=== PATIENT | male | born 1980 | race Caucasian/White ===

== ENCOUNTER 2016-07-24 11:21 | Emergency (ER) ==
[2016-07-24 11:21] VITALS: BMI 30.1
[2016-07-24 11:30] VITALS: BP 126/83; TEMP 97.7
[2016-07-24] MEDS ORDERED: MOTRIN SUSP PO STA (11:30)
--- NOTE | 2016-07-24 11:31 | ED.PDOC ---
General ED Provider: Dr. REED CEDILLO-ER Chief Complaint: Ankle Pain/Injury Stated Complaint: i rolled my ankle this morning--hussein injured it before Time Seen by Physician: 11:30 Mode of Arrival: Walk-In Information Source: Patient Exam Limitations: No limitations Nursing and Triage Documentation Reviewed and Agree: Yes Musculoskeletal Complaint Exam - Ankle/Foot Complaint/Exam Location of Injury: Reports: Left, Ankle Mechanism of Injury: Reports: No known trauma Onset/Duration: 1hr Symptoms Are: Reports: Still present Onset of Pain: Reports: Immediate Initial Severity: Mild Current Severity: Mild Location: Reports: Discrete (left ankle) Character: Reports: Dull, Aching, Stiffness Alleviating: Reports: None Aggravating: Reports: Movement, Weight bearing Able to Bear Weight: No Associated Signs and Symptoms: Reports: Swelling, Bruising. Denies: Redness, Fever, Weakness, Numbness, Tingling Gout Risk Factors: Reports: Male Lower Extremity Findings: Present: Swelling, Tenderness, Limited range of motion Achilles Tendon Abnormality: No Tenderness: Present: Lateral malleolus Limited Range of Motion: Present: Inversion, Eversion, Dorsiflexion Differential Diagnosis: Closed Fracture, Sprain, Strain Review of Systems - Review Of Systems Constitutional: Reports: No symptoms Eyes: Reports: No symptoms Ears, Nose, Mouth, Throat: Reports: No symptoms Respiratory: Reports: No symptoms Cardiac: Reports: No symptoms GI: Reports: No symptoms : Reports: No symptoms Musculoskeletal: Reports: Joint pain, Joint swelling, Muscle pain Skin: Reports: No symptoms Neurological: Reports: No symptoms Endocrine: Reports: No symptoms Hematologic/Lymphatic: Reports: No symptoms All Other Systems: Reviewed and Negative Past Medical History - Past Medical History Previously Healthy: Yes Endocrine: Reports: None Cardiovascular: Reports: None Respiratory: Reports: None Hematological: Reports: None Gastrointestinal: Reports: None Genitourinary: Reports: None Neuro/Psych: Reports: None Musculoskeletal: Reports: None Cancer: Reports: None - Surgical History General Surgical History: Reports: Unknown - Family History Family History: Reports: Unknown - Social History Smoking Status: Former smoker Hx Substance Use: No Alcohol Screening: Occasionally Lives: With family Physical Exam - Physical Exam Appearance: Well-appearing, No pain distress, Well-nourished Pain Distress: Mild Eyes: CHRIS, EOMI, Conjunctiva clear ENT: Ears normal, Nose normal, Oropharynx normal Neck: Supple Respiratory: Airway patent, Breath sounds clear, Breath sounds equal, Respirations nonlabored Cardiovascular: RRR, Pulses normal, No rub, No murmur GI/: Soft, Nontender, No masses, Bowel sounds normal, No Organomegaly Musculoskeletal: Limited ROM Skin: Warm, Dry, Normal color Neurological: Sensation intact, Motor intact, Reflexes intact, Cranial nerves intact, Alert, Oriented Psychiatric: Affect appropriate Interpretation - Radiology Interpretation Radiology Interpretation By: Radiologist Radiology Results: Negative Critical Care Note - Critical Care Note Total Time (mins): 0 Course - Course Orders, Labs, Meds: Orders Category Date Time Status Ice Pack [ED APPLY ICE AFFECTED AREA] .ONCE EMERGENCY 07/24/16 11:31 Active Ibuprofen Susp [Motrin Susp] MEDS 07/24/16 11:30 Discontinued 800 mg PO ONCE STA ANKLE, LEFT MIN 3 VIEWS Stat RADS 07/24/16 11:29 Completed Medications Discontinued Medications Generic Name Dose Route Start Last Admin Trade Name Freq PRN Reason Stop Dose Admin Ibuprofen 800 mg 07/24/16 11:30 Motrin Susp PO 07/24/16 11:31 ONCE STA Vital Signs: Temp Pulse Resp BP Pulse Ox 07/24/16 11:24 97.7 F 84 20 126/83 96 Departure - Departure Time of Disposition: 12:03 Disposition: HOME SELF-CARE Discharge Problem: Ankle pain Instructions: Ankle Stirrup Splint (ED), Ankle Sprain (ED) Condition: Good Pt referred to PMD for follow-up: Yes Additional Instructions: stay in splint at least 1-2 weeks--motrin for pain--f/u with pcp Allergies/Adverse Reactions: Allergies No Known Allergies Allergy (Verified 07/24/16 11:26) Home Medications: Ambulatory Orders 1 [No Reported Medications] 01/11/16 Disposition Discussed With: Patient
--- NOTE | 2016-07-24 11:54 | DI ---
EXAM: Three views of the left ankle HISTORY: Ankle injury. COMPARISON: Right ankle x-ray 01/11/2016 FINDINGS: There is no lytic or blastic lesion of the left ankle. There is no displaced fracture or dislocation. The joint spaces are maintained. The soft tissues are normal. The osseous structures are unremarkable. IMPRESSION: No acute abnormality or displaced fracture of the left ankle.
== END 2016-07-24 12:35 | disposition home or self-care (01) ==
LOC: ED 11:21
DX: M25.572 Pain in left ankle and joints of left foot (principal)
CPT/HCPCS: 99283

== ENCOUNTER 2017-10-17 15:15 | Emergency (ER) | payer MEDICAID, OTHER ==
[2017-10-17 15:21] VITALS: BP 160/78; TEMP 98.9; BMI 32.4
--- NOTE | 2017-10-17 15:57 | DI ---
EXAM: Four views of the right knee HISTORY: Right knee injury. COMPARISON: Right knee x-ray 01/11/2016 FINDINGS: The medial and lateral compartments are normal. There is no displaced fracture or dislocat ion. Soft tissues are unremarkable. There is no lytic or blastic lesion. Patellofemoral compartmen t is normal. IMPRESSION: No acute abnormality of the right knee.
--- NOTE | 2017-10-17 15:58 | ED.PDOC ---
General ED Provider: Dr. LILLIAN KELLOGG Chief Complaint: Knee Pain/Injury Stated Complaint: knee pain right sided Time Seen by Physician: 15:17 Mode of Arrival: Walk-In Information Source: Patient Exam Limitations: No limitations Nursing and Triage Documentation Reviewed and Agree: Yes Does patient meet sepsis criteria?: Yes If yes, has appropriate treatment been initiated?: No System Inflammatory Response Syndrome: Not Applicable Sepsis Protocol: For patient's 13 years and over: Temp is 96.8 and below OR 101 and greater Pulse >90 BPM Resp >20/minute Acutely Altered Mental Status Are patient's symptoms suggestive of a new infection, such as: -Pneumonia -Skin, Soft Tissue -Endocarditis -UTI -Bone, Joint Infection -Implantable Device -Acute Abdominal Infection -Wound Infection -Meningitis -Blood Stream Catheter Infection -Unknown Musculoskeletal Complaint Exam - Ankle/Foot Complaint/Exam Location of Injury: Reports: Right, Knee Mechanism of Injury: Reports: Trauma (jumped and then has pain x 2 days ) Onset/Duration: 2 days Symptoms Are: Reports: Still present Onset of Pain: Reports: Days Initial Severity: Moderate Current Severity: Mild Location: Reports: Discrete (ant right knee ) Character: Reports: Aching Alleviating: Reports: Rest Aggravating: Reports: Movement Able to Bear Weight: Yes Associated Signs and Symptoms: Denies: Swelling, Redness, Bruising, Fever, Weakness, Numbness, Tingling Gout Risk Factors: Reports: None Related Surgical History: Reports: None Lower Extremity Findings: Absent: Swelling, Ecchymosis, Abnormal contour Achilles Tendon Abnormality: No Differential Diagnosis: Sprain, Strain Review of Systems - Review Of Systems Constitutional: Reports: No symptoms Eyes: Reports: No symptoms Ears, Nose, Mouth, Throat: Reports: No symptoms Respiratory: Reports: No symptoms Cardiac: Reports: No symptoms GI: Reports: No symptoms : Reports: No symptoms Musculoskeletal: Reports: Joint pain (right knee) Skin: Reports: No symptoms Neurological: Reports: No symptoms Endocrine: Reports: No symptoms Hematologic/Lymphatic: Reports: No symptoms All Other Systems: Reviewed and Negative Past Medical History - Past Medical History Previously Healthy: Yes Endocrine: Reports: None Cardiovascular: Reports: None Respiratory: Reports: None Hematological: Reports: None Gastrointestinal: Reports: None Genitourinary: Reports: None Neuro/Psych: Reports: None Musculoskeletal: Reports: None Cancer: Reports: None - Surgical History General Surgical History: Reports: Unknown - Family History Family History: Reports: Unknown - Social History Smoking Status: Former smoker Hx Substance Use: No Alcohol Screening: Occasionally Physical Exam - Physical Exam Appearance: Well-appearing, No pain distress, Well-nourished Eyes: CHIRS, EOMI, Conjunctiva clear ENT: Ears normal, Nose normal, Oropharynx normal Respiratory: Airway patent, Breath sounds clear, Breath sounds equal, Respirations nonlabored Cardiovascular: RRR, Pulses normal, No rub, No murmur GI/: Soft, Nontender, No masses, Bowel sounds normal, No Organomegaly Musculoskeletal: Limited ROM (right knee pain sensation circulation of right leg is wnl) Skin: Warm, Dry, Normal color Neurological: Sensation intact, Motor intact, Reflexes intact, Cranial nerves intact, Alert, Oriented Psychiatric: Affect appropriate, Mood appropriate Critical Care Note - Critical Care Note Total Time (mins): 0 Course - Course Orders, Labs, Meds: Orders Category Date Time Status KNEE, RIGHT 4 VIEWS Stat RADS 10/17/17 15:32 Taken Vital Signs: Temp Pulse Resp BP Pulse Ox 10/17/17 15:15 98.9 F 88 20 160/78 H 97 Departure - Departure Time of Disposition: 04:30 Disposition: HOME SELF-CARE Discharge Problem: Knee pain Right knee sprain Qualifiers: Encounter type: initial encounter Involved ligament of knee: unspecified ligament Qualified Code(s): S83.91XA - Sprain of unspecified site of right knee , initial encounter Instructions: Knee Pain (ED) Condition: Good Pt referred to PMD for follow-up: Yes IPMP verified?: No Additional Instructions: Please call your Family Physician as soon as possible to schedule a follow-up appointment. Allergies/Adverse Reactions: Allergies No Known Allergies Allergy (Verified 10/17/17 15:21) Home Medications: Ambulatory Orders 1 [No Reported Medications] 01/11/16 Disposition Discussed With: Patient
== END 2017-10-17 16:15 | disposition home or self-care (01) ==
LOC: ED 15:15
DX: S83.91XA Sprain of unspecified site of right knee, initial encounter (principal); X50.1XXA Overexertion from prolonged static or awkward postures, initial encounter
CPT/HCPCS: 99283

== ENCOUNTER 2018-10-15 08:35 | Emergency (ER) ==
[2018-10-15 08:41] VITALS: TEMP 100; BMI 30.8
--- NOTE | 2018-10-15 08:57 | ED.PDOC ---
General ED Provider: Dr. REED SANDOVAL MD Chief Complaint: Ankle Pain/Injury Stated Complaint: left foot pain Time Seen by Physician: 08:51 Mode of Arrival: Wheelchair Information Source: Patient Exam Limitations: No limitations Nursing and Triage Documentation Reviewed and Agree: Yes Does patient meet sepsis criteria?: No If yes, has appropriate treatment been initiated?: Yes System Inflammatory Response Syndrome: Not Applicable Sepsis Protocol: For patient's 13 years and over: Temp is 96.8 and below OR 101 and greater Pulse >90 BPM Resp >20/minute Acutely Altered Mental Status Are patient's symptoms suggestive of a new infection, such as: -Pneumonia -Skin, Soft Tissue -Endocarditis -UTI -Bone, Joint Infection -Implantable Device -Acute Abdominal Infection -Wound Infection -Meningitis -Blood Stream Catheter Infection -Unknown Review of Systems - Review Of Systems Constitutional: Reports: Chills, Fever, Malaise Eyes: Reports: No symptoms Ears, Nose, Mouth, Throat: Reports: No symptoms Respiratory: Reports: No symptoms Cardiac: Reports: No symptoms GI: Reports: No symptoms : Reports: No symptoms Musculoskeletal: Reports: Joint pain (left foot/ankle) Skin: Reports: No symptoms Neurological: Reports: No symptoms Endocrine: Reports: No symptoms Hematologic/Lymphatic: Reports: No symptoms All Other Systems: Reviewed and Negative Past Medical History - Past Medical History Previously Healthy: Yes Endocrine: Reports: None Cardiovascular: Reports: None Respiratory: Reports: None Hematological: Reports: None Gastrointestinal: Reports: None Genitourinary: Reports: None Neuro/Psych: Reports: None Musculoskeletal: Reports: None Cancer: Reports: None - Surgical History General Surgical History: Reports: Unknown - Family History Family History: Reports: Unknown - Social History Smoking Status: Former smoker Hx Substance Use: No Alcohol Screening: Occasionally Physical Exam - Physical Exam Appearance: Ill-appearing Ill-appearing: Mild Pain Distress: Mild Eyes: CHRIS, EOMI, Conjunctiva clear ENT: Ears normal, Nose normal, Oropharynx normal Respiratory: Airway patent, Breath sounds clear, Breath sounds equal, Respirations nonlabored Cardiovascular: RRR, Pulses normal, No rub, No murmur GI/: Soft, Nontender, No masses, Bowel sounds normal, No Organomegaly Musculoskeletal: Normal strength, ROM intact, No edema, No calf tenderness Skin: Warm (+1 swelling redness left foot) Neurological: Sensation intact, Motor intact, Reflexes intact, Cranial nerves intact, Alert, Oriented Psychiatric: Affect appropriate, Mood appropriate Critical Care Note - Critical Care Note Total Time (mins): 0 Course - Course Orders, Labs, Meds: Orders Category Date Time Status Ceftriaxone Sodium [Rocephin] MEDS 10/15/18 08:56 Discontinued 1 gm IM ONCE STA Ketorolac Tromethamine [Toradol] MEDS 10/15/18 08:56 Discontinued 60 mg IM ONCE STA Lidocaine HCl/Pf [Lidocaine HCl 1% Sdv] MEDS 10/15/18 09:01 Discontinued 5 ml .ROUTE .STK-MED ONE Medications Discontinued Medications Generic Name Dose Route Start Last Admin Trade Name Freq PRN Reason Stop Dose Admin Ceftriaxone Sodium 1 gm 10/15/18 08:56 10/15/18 09:10 Rocephin IM 10/15/18 08:57 1 gm ONCE STA Administration Ketorolac Tromethamine 60 mg 10/15/18 08:56 10/15/18 09:09 Toradol IM 10/15/18 08:57 60 mg ONCE STA Administration Vital Signs: Temp Pulse Resp BP Pulse Ox 10/15/18 08:36 100 F H 87 20 162/108 H 97 Departure - Departure Time of Disposition: 09:32 Disposition: HOME SELF-CARE Discharge Problem: Cellulitis of foot Instructions: Cellulitis (ED) Condition: Good Pt referred to PMD for follow-up: Yes IPMP verified?: No Prescriptions: Cephalexin [Keflex] 500 mg PO Q6HR 5 Days #20 capsule NS Allergies/Adverse Reactions: Allergies No Known Allergies Allergy (Verified 10/15/18 08:43) Home Medications: Ambulatory Orders Cephalexin [Keflex] 500 mg PO Q6HR 5 Days #20 capsule NS 10/15/18 Transfer Form Completed: No Disposition Discussed With: Patient
[2018-10-15] MEDS: TORADOL IM STA (09:09)
[2018-10-15] MEDS: LIDOCAINE HCL 1% SDV ONE (09:10)
[2018-10-15] MEDS: ROCEPHIN IM STA (09:10)
[2018-10-15 10:15] VITALS: BP 130/80
== END 2018-10-15 10:15 | disposition home or self-care (01) ==
LOC: ED 08:35
DX: L03.116 Cellulitis of left lower limb (principal)
CPT/HCPCS: 96372; 99283